=== PATIENT | female | born 1980 | race Caucasian/White ===

== ENCOUNTER 2018-09-07 20:58 | Emergency (ER) | payer MEDICAID ==
[2018-09-07 20:58] VITALS: BMI 30.7
[2018-09-07 21:01] VITALS: RESP 16; TEMP 98
[2018-09-07 22:24] LABS: BASO % 0.5 % (0.0-2.0); EOS % 0.3 % (0.0-4.0); HEMOGLOBIN 13.5 g/dL (12.0-16.0); LYMPH % 13.9 % (20.0-40.0); MEAN CELL VOLUME 85.9 fl (81.0-99.0); MEAN CORPUSCULAR HEMOGLOBIN 28.7 pg (27.0-31.0); MEAN CORPUSCULAR HGB CONC 33.4 g/dL (33.0-37.0); MEAN PLATELET VOLUME 7.8 fl (7.2-11.7); MONO # 0.3 K/uL (0.0-0.8); MONO % 4.6 % (0.0-10.0); NEUT # 5.5 K/uL (1.8-7.0); NEUT % 80.7 % (50.0-75.0); NRBC % 0.3 % (0.0-0.0); RBC 4.71 Mil/uL (3.80-5.20); RED CELL DISTRIBUTION WIDTH 15.3 % (11.5-14.5); WHITE BLOOD COUNT 6.8 K/uL (4.8-10.8)
[2018-09-07 22:34] LABS: BLOOD UREA NITROGEN 10 mg/dl (7-17); CALCIUM 9.7 mg/dL (8.4-10.2); GFR NON-AFRICAN AMERICAN > 60
[2018-09-07 22:46] LABS: ACETAMINOPHEN < 10.0 ug/ml (10.0-30.0); SALICYLATE < 1.0 mg/dl
[2018-09-08 00:04] LABS: SQUAMOUS EPITHIAL < 1 /hpf (0-5); URINE BILIRUBIN NEGATIVE (NEGATIVE); URINE BLOOD MODERATE (NEGATIVE); URINE CLARITY CLEAR (Clear); URINE COLOR YELLOW (YELLOW); URINE GLUCOSE (UA) NEG (NEGATIVE); URINE LEUKOCYTE ESTERASE NEG Leu/uL (Negative); URINE PROTEIN NEGATIVE (NEGATIVE); URINE UROBILINOGEN 0.2-1.0 mg/dL (0.2-1.0)
[2018-09-08 00:35] LABS: BARBITURATES, UR NEGATIVE (NEGATIVE); BENZODIAZEPINES, UR NEGATIVE (NEGATIVE); OPIATES, UR NEGATIVE (NEGATIVE); PHENCYCLIDINE, UR NEGATIVE (NEGATIVE)
--- NOTE | 2018-09-08 03:35 | ED PDOC ---
HPI: General Adult Time Seen by Provider: 09/07/18 21:23 Chief Complaint (Nursing): Medical Clearance Chief Complaint (Provider): Medical Clearance History Per: Patient, EMS History/Exam Limitations: no limitations Onset/Duration Of Symptoms: Mins Current Symptoms Are (Timing): Still Present Additional Complaint(s): 38 year old female presents to the ED by police for medical and psychiatric clearance. Patient states she has been having suicidal thoughts for the past year and feel worthless. She states she feels pain every day because of lupus. She reports having thoughts of overdosing on Percocet and stabbing herself with a knife. Patient states she has had homicidal thoughts towards the father of her child. PMD: none provided Past Medical History Reviewed: Historical Data, Nursing Documentation, Vital Signs Vital Signs: Last Vital Signs Temp 98.0 F 09/07/18 20:59 Pulse 71 09/07/18 20:59 Resp 16 09/07/18 20:59 BP 133/79 09/07/18 20:59 Pulse Ox 100 09/07/18 20:59 - Medical History PMH: Anxiety Denies: Diabetes, Hepatitis, HIV, HTN, Seizures, Sexually Transmitted Disease Other PMH: Lupus - Surgical History Surgical History: No Surg Hx - Family History Family History: States: Unknown Family Hx - Immunization History Hx Tetanus Toxoid Vaccination: No Hx Influenza Vaccination: No Hx Pneumococcal Vaccination: No - Allergies Allergies/Adverse Reactions: Allergies Allergy/AdvReac Type Severity Reaction Status Date / Time apple Allergy RASH Verified 09/07/18 21:03 tang Allergy RASH Verified 09/07/18 21:03 kiwi Allergy RASH Verified 09/07/18 21:03 latex Allergy RASH Verified 09/07/18 21:03 Penicillins Allergy URTICARIA Verified 07/03/17 12:06 seasonal Allergy RASH Uncoded 07/03/17 12:06 Review of Systems ROS Statement: Except As Marked, All Systems Reviewed And Found Negative Psych: Positive for: Depression, Suicidal ideation Physical Exam - Reviewed Nursing Documentation Reviewed: Yes Vital Signs Reviewed: Yes - Physical Exam Appears: Positive for: No Acute Distress (tearful and depressed) Head Exam: Positive for: ATRAUMATIC, NORMOCEPHALIC Skin: Positive for: Normal Color, Warm, Dry Eye Exam: Positive for: Normal appearance Neck: Positive for: Normal, Painless ROM Cardiovascular/Chest: Positive for: Regular Rate, Rhythm Respiratory: Positive for: Normal Breath Sounds. Negative for: Wheezing, Respiratory Distress Extremity: Positive for: Normal ROM Neurologic/Psych: Positive for: Alert, Oriented. Negative for: Motor/Sensory Deficits - Laboratory Results Result Diagrams: 09/07/18 22:10 09/07/18 22:10 - ECG O2 Sat by Pulse Oximetry: 100 (RA) Pulse Ox Interpretation: Normal Medical Decision Making Medical Decision Making: Initial Impression: 38 year old female with depression and suicidal ideation Initial Plan: --ECG --Acetaminophen stat --Alcohol serum stat --BMP -Drug screen --Salicylate stat --Crisis evaluation --CBC --Chest X-ray --Xanax 0.5mg PO --1:1 observation --Urinalysis 03:31 Patient was screened by crisis for [facility] evaluation. Patient is medically cleared for psychiatric evaluation. 06:11 Patient cleared by [facility] and crisis with diagnosis of depression. Scribe Attestation: Documented by José Tyler acting as a scribe for Michael Nice MD. Provider Scribe Attestation: All medical record entries made by the Scribe were at my direction and personally dictated by me. I have reviewed the chart and agree that the record accurately reflects my personal performance of the history, physical exam, medical decision making, and the department course for this patient. I have also personally directed, reviewed, and agree with the discharge instructions and disposition. Disposition - Clinical Impression Clinical Impression: Depression - Disposition Referrals: [facility] [Outside] Disposition: Discharged/Transfer to Law Enforcement Disposition Time: 06:11 Condition: STABLE Additional Instructions: Patient is medically and psychiatrically stable for incarceration. Instructions: Depression, General (DC) Forms: [email or web address] (H[place]er)
[2018-09-08 06:21] VITALS: BP 129/76; PULSE 70
[2018-09-08 07:22] VITALS: O2SAT 100
--- NOTE | 2018-09-08 09:39 | RAD ---
Date of service: 09/07/2018 HISTORY: hx of lupus, psych complaints COMPARISON: No prior. FINDINGS: LUNGS: No active pulmonary disease. PLEURA: No significant pleural effusion identified, no pneumothorax apparent. CARDIOVASCULAR: No aortic atherosclerotic calcification present. Normal cardiac size. No pulmonary vascular congestion. OSSEOUS STRUCTURES: No significant abnormalities. VISUALIZED UPPER ABDOMEN: Normal. OTHER FINDINGS: None. IMPRESSION: No active disease.
--- NOTE | 2018-09-09 11:43 | CARD ---
APPROVED REPORT Date of service: 09/08/2018 EKG Measurement Heart [id number] <Conclusion> Normal sinus rhythm Normal ECG
== END 2018-09-08 06:21 ==
LOC: H.ER 20:58
DX: F32.9 Major depressive disorder, single episode, unspecified (principal); M32.9 Systemic lupus erythematosus, unspecified; Z88.0 Allergy status to penicillin; Z00.8 Encounter for other general examination
CPT/HCPCS: 71045; 80048; 81003; 81025; 85025; 93005; 99283; G0480